=== PATIENT | female | born 1975 | race Caucasian/White ===

== ENCOUNTER 2021-06-08 13:34 | Emergency (ER) | payer OTHER, SELFPAY ==
[2021-06-08 13:35] VITALS: BP 120/79; PULSE 109; PULSE 112; RESP 20; RESP 35; TEMP 37.7; O2SAT 96; O2SAT 98; BMI 49.8
--- NOTE | 2021-06-08 14:07 | CT_ITS ---
STUDY: CTA CHEST REASON FOR EXAM: Female, 45 years old. CP hx of DVT RADIATION DOSAGE (If Supplied By Facility): CTDIvol = ( 12.50 ) mGy, DLP = ( 986.34 ) mGycm TECHNIQUE: The examination was performed with the intravenous administration of IV 100mL Isovue-370. Post-processing of the angiographic images was performed, with multiplanar reformation and 3D reconstruction. Individualized dose optimization techniques were used for this CT. Mild respiratory motion artifact noted. COMPARISON: None. FINDINGS: Normal enhancement of the main pulmonary artery and right and left pulmonary arteries. Normal enhancement of the bilateral peripheral pulmonary arteries. There is no demonstrated pulmonary embolism. Normal thoracic aorta and visualized great vessels. There is no demonstrated aortic dissection. Normal heart size and pericardium. Normal mediastinum. Normal hilar regions. Normal visualized trachea and bronchi. The lungs are well expanded. Mild scattered interstitial fibrotic scarring bilaterally no visualized consolidation. Subsegmental atelectasis is present in the right middle lobe. Minimal dependent atelectasis is seen in the right lung base. Mild interstitial edema is also present bilaterally. Normal pleura. Normal chest wall structures. There are degenerative changes of thoracic spine. Normal visualized upper abdomen. CT/CTA Chest W/WO Contrast IMPRESSION: 1. Mild scattered interstitial fibrotic scarring bilaterally no visualized consolidation. Subsegmental atelectasis is present in the right middle lobe. Minimal dependent atelectasis is seen in the right lung base. 2. Mild interstitial edema is also present bilaterally 3. No demonstrated pulmonary embolism or arterial dissection. Electronically Signed: Russ Muñoz MD at 16:29 EDT , Service support ,
--- NOTE | 2021-06-08 14:07 | EKG12_ITS ---
Test Reason : SOB Blood Pressure : / mmHG Vent. Rate : 108 BPM Atrial Rate : 108 BPM P-R Int : 138 ms QRS Dur : 070 ms QT Int : 306 ms P-R-T Axes : 017 011 012 degrees QTc Int : 410 ms Sinus tachycardia Otherwise normal ECG Confirmed by TALYA WILEY, ORIN ([id number]), production editor JUDITH AU ([id number]) on 06/09/2021 12:55:45 PM Referred By: SIDNY Confirmed By:INDIRA BABIN MD
--- NOTE | 2021-06-08 14:09 | NURSING ---
NO OLD EKGS
--- NOTE | 2021-06-08 14:18 | EDS_ITS ---
HPI History of Present Illness Chief Complaint: Chest Pain Informant: patient Narrative Narrative: Presents with chest pain. It sounds like she had some of this last night. Somewhere in the middle the night it acted up and kept her up. It sounds like it has been waxing and waning or coming and going. She did go to a routine eye appointment today. When she got back into her buggy, she felt very weak and the pain got worse. and needs to hold onto things to walk. She does have a fair amount of effort to try to walk and move. She has a history of cerebellar ataxia When the pain was bad it did radiate to the left shoulder arm area.. She did feel short of breath. She was not nausea or vomiting. She was not reportedly diaphoretic. She did feel weak though. The symptoms are much better now. She has no radiation or shortness of breath at this time. Taking a deep breath does not worsen the pain but it does make the pain move a little bit toward her back. She has never had this before. She denies right upper quadrant pain.She has no recent travel or surgery However, she has had a DVT after her last child about 8 years ago and was on blood thinners for period of time. or family history of DVT or PE. She also is relatively immobile as above. No known heart disease runs in the family. She has never been a smoker. No diabetes high blood pressure or cholesterol. Only medication is duloxetine. [facility] Medical History Spinocerebellar ataxia Home Medications duloxetine 60 mg PO DAILY 06/08/21 [History Last Taken Unknown] Allergy/AdvReac Type Severity Reaction Status Date / Time No Known Allergies Allergy Verified 06/08/21 13:35 Surgical History History of bladder surgery History of repair of hiatal hernia History of tubal ligation Social History Smoking Status: Never smoker ROS ROS ED Constitutional Constitutional ED: Denies chills or fever(s) Eyes Eyes: Denies change in vision ENT ENT ED: Denies rhinorrhea or sore throat Cardiovascular Cardiovascular: Reports chest pain; Denies palpitations or racing heartbeat Respiratory/Chest Respiratory/Chest: Reports dyspnea; Denies cough or sputum Gastrointestinal Gastrointestinal: Denies abdominal pain, nausea or vomiting Genitourinary Genitourinary ED: Denies dysuria Musculoskeletal Musculoskeletal: Denies arthralgias or neck pain Integumentary Denies rash Neurologic Neurologic: Denies headache(s) Endocrine Endocrinology: Denies polydipsia or polyuria Hematologic/Lymphatic Hematologic/Lymphatic: Denies easy bruising Allergic/Immunologic Allergic/Immunologic ED: Denies urticaria EXAM Physical Exam Const Vital Signs: 06/08/21 13:35 06/08/21 14:52 06/08/21 15:35 Temperature 99.9 F H Temperature Source Oral Pulse Rate 112 H 74 Respiratory Rate 35 H 15 Blood Pressure 120/79 123/78 H Blood Pressure Mean 92 93 Pulse Ox 96 98 Oxygen Delivery Method Room Air Nasal Cannula Room Air Oxygen Flow Rate (L/min) 2 06/08/21 17:00 Temperature Temperature Source Pulse Rate 79 Respiratory Rate 15 Blood Pressure 125/74 H Blood Pressure Mean 91 Pulse Ox 96 Oxygen Delivery Method Room Air Oxygen Flow Rate (L/min) Positive well nourished, well developed and obese General Appearance ED: well developed and NAD Nutritional Appearance: obese HEENT atraumatic Eyes General Eye ED: Negative for pale conjunctiva Neck no JVD Chest Wall inspection of chest normal and palpation of chest normal Chest: Negative for tenderness Resp normal respiratory effort and clear to auscultation bilaterally Effort and Inspection: Negative for respiratory distress Auscultation: Negative for rales, rhonchi or wheezes Cardio regular rate and regular rhythm GI normal to inspection, nondistended, normoactive bowel sounds GI Narrative: No epigastric or right upper tenderness on exam. When I press in the epigastric area she points slightly higher as to the origin of her pain. Extremity normal to inspection General Extremety ED: Negative for tenderness Neuro Sensorium / Orientation: awake and alert Psych Psych Narrative: Mildly flat affect. Skin no rashes or lesions noted Heart Score History: Moderately Suspicious ECG: Normal Age: </= 45 years Risk Factors: 1 or 2 Risk Factors Score: 2 MDM MDM MDM Narrative Medical decision making narrative: Blood work did show an elevated white count but otherwise normal. Electrolytes were essentially normal. Troponin and repeat troponin were negative. CT scan showed mild fibrotic scarring but no pneumonia. There is some mild atelectasis. No pulmonary embolism or dissection. I talked with the patient again. She now states that she fell on Sunday. She was sore around the shoulders. She is wondering if this may have caused her chest pain. She is feeling a lot better now. She drank here. She had a couple bites. This did not cause any symptoms. Repeat exam so she looks comfortable. Her heart rates down in the seventies. Her abdomen is also completely benign. There is no indication of biliary tenderness. She will follow up with her physician. She has a heart score of 2. Lab Data Attestation: I reviewed the patient's lab results. Labs: Laboratory Results - last 24 hr 06/08/21 06/08/21 06/08/21 13:10 13:10 17:27 WBC 18.3 H RBC 4.50 Hgb 13.1 Hct 39.0 MCV 86.7 MCH 29.1 MCHC 33.6 RDW Std Deviation 40.8 RDW Coeff of Kassidy 13.0 Plt Count 289 MPV 9.2 Immature Gran % (Auto) 0.500 Neut % (Auto) 88.8 H Lymph % (Auto) 6.3 L Mcnairy % (Auto) 4.2 Eos % (Auto) 0.0 Baso % (Auto) 0.2 Absolute Neuts (auto) 16.3 H Absolute Lymphs (auto) 1.16 Nucleated RBC % 0 Sodium 133 L Potassium 3.7 Chloride 102 Carbon Dioxide 28.0 Anion Gap 3 L BUN 9 Creatinine 0.80 Estim Creat Clear Calc 65.13 Est GFR (MDRD) Af Amer 100 Est GFR (MDRD) Non-Af 83 BUN/Creatinine Ratio 11.2 Glucose 104 Calcium 8.7 Troponin I High Sens 4 4 Radiography Diagnostic Testing: Radiology Impression Chest CTA 06/08/21 14:07 IMPRESSION: 1. Mild scattered interstitial fibrotic scarring bilaterally no visualized consolidation. Subsegmental atelectasis is present in the right middle lobe. Minimal dependent atelectasis is seen in the right lung base. 2. Mild interstitial edema is also present bilaterally 3. No demonstrated pulmonary embolism or arterial dissection. Electronically Signed: Russ Muñoz MD at 16:29 EDT , Service support , EKG Initial EKG: Comments: EKG done for chest pain read by me shows sinus rhythm with tachycardic rate at 108. No ventricular ectopy. No acute ST elevation or depression. CT interval, QRS duration and QTc are normal. This is similar to the EMS EKG done before this. Discharge Plan Triage Chief Complaint: Chest Pain ED Provider: Eleazar Smallwood Dx/Rx/DC Orders Clinical Impression: Chest pain Instructions: ED Chest Pain, Uncertain Cause Prescriptions: No Action duloxetine 60 mg Capsule, Delayed Rel Sprinkle 60 mg PO DAILY RF: 0 Primary Care Provider: Colin Cowart Referrals: Colin Cowart DO [Primary Care Provider] - 3-5 Days Disposition Disposition: Home, Self Care
[2021-06-08 14:41] LABS: Absolute Lymphocyte Count 1.16 X10^3/uL (0.83-4.51); Absolute Neutrophil Count 16.3 X10^3/uL (2.0-7.7); Basophil# 0.03 X10^3/uL; Basophil% 0.2 % (0-1); Hemoglobin 13.1 g/dL (12.0-15.0); Lymphocyte # 1.16 X10^3/ul (0.83-4.51); Lymphocyte % 6.3 % (19-41); Mean Corp Hgb Conc 33.6 g/dL (32-36); Mean Corpuscular Hgb 29.1 pg (27.0-32.0); Mean Corpuscular Volume 86.7 fL (81-99); Mean Platelet Vol. 9.2 fl (6.2-12.0); Monocyte# 0.76 X10^3/uL; Monocyte% 4.2 % (0-10); NRBC Flagged by Analyzer 0 % (0-5); Neutrophil # 16.26 X10^3/uL (2.7-7.7); Neutrophil % 88.8 % (47-70); Platelet Count 289 K/mm3 (150-450); RBC Distribution Width SD 40.8 fl (35.1-43.9); White Blood Count 18.3 K/mm3 (4.4-11.0)
[2021-06-08] MEDS: 0.9% Normal Saline 1,000 ML 500 ML IV (14:53)
[2021-06-08 15:03] LABS: Anion Gap 3 (5-15); BUN 9 mg/dL (7-18); BUN/Creat Ratio 11.2 RATIO (10-20); Calcium,Total 8.7 mg/dL (8.5-10.1); Chloride 102 mmol/L (98-107); EST Glomerular Filtration Rate 83 mL/min (>60); Est Glom Filt Rate - Afr Amer 100 mL/min (>60); Estimated Creatinine Clearance 65.13 ml/min; Glucose 104 mg/dL (74-106); Potassium 3.7 mmol/L (3.5-5.1); Sodium Level 133 mmol/L (136-145); Troponin-I HS 4 pg/mL (3.0-54.0)
[2021-06-08 15:35] VITALS: BP 123/78; PULSE 74; RESP 15; O2SAT 98
[2021-06-08 17:00] VITALS: BP 125/74; PULSE 79; RESP 15; O2SAT 96
[2021-06-08 17:52] LABS: Troponin-I HS 4 pg/mL (3.0-54.0)
== END 2021-06-08 19:22 | disposition home or self-care (01) ==
PROVIDERS: Emergency Provider Emergency Medicine; PCP Family Medicine
DX: R07.9 Chest pain, unspecified (principal); R53.1 Weakness; R06.00 Dyspnea, unspecified; E66.9 Obesity, unspecified; Z68.42 Body mass index [BMI] 45.0-49.9, adult; G11.19 Other early-onset cerebellar ataxia; Z86.718 Personal history of other venous thrombosis and embolism; Z79.899 Other long term (current) drug therapy
CPT/HCPCS: 71275; 80048; 84484; 85025; 87426; 93005; 96360; 96361; 99285; J7040; Q9967; A4216